=== PATIENT | female | born 1970 | race Hispanic/Latino ===

== ENCOUNTER 2018-01-15 19:05 | Emergency (ER) | payer SELFPAY ==
--- NOTE | 2018-01-15 19:55 | CT ---
CT HEAD NONCONTRAST: 01/15/18 HISTORY: Syncope. COMPARISON: 01/17/12. FINDINGS: There is no evidence of acute intracranial hemorrhage or infarct. Ventricles appear normal in size, s hape and position. There is no mass effect or shift of midline structures. The visualized paranasal s inuses remain well aerated. IMPRESSION: No acute intracranial abnormalities are demonstrated. POS: [facility]
[2018-01-15 20:09] LABS: #Eosinphils 0.2 thou/uL (0.0-0.7); #Lymphocytes 1.2 thou/uL (1.20-3.40); #Monocytes 0.5 thou/uL (0.11-0.59); #Neutrophils 7.6 thou/uL (1.40-6.50); %Basophils 0.1 % (0.0-1.0); %Eosinophils 2.1 % (0.0-10.0); %Lymphocytes 12.4 % (21.0-51.0); %Monocytes 4.9 % (0.0-10.0); %Neutrophils 80.5 % (42.0-75.0); Hemoglobin 7.6 g/dL (12.0-16.0); Mean Corpuscular HGB CONC 28.6 g/dL (32.0-36.0); Mean Corpuscular Hemoglobin 17.6 pg (27.0-31.0); Mean Corpuscular Volume 61.4 fL (78.0-98.0); Mean Platelet Volume 5.5 fL (7.4-10.4); Platelet Count 394 thou/uL (130-400); RBC Distribution Width 19.1 % (11.5-14.5); Red Blood Cell (RBC) Count 4.31 mill/uL (4.20-5.40); White Blood Cell (WBC) Count 9.5 thou/uL (4.8-10.8)
[2018-01-15 20:27] LABS: ALT (SGPT) 19 U/L (8-55); AST (SGOT) 16 U/L (5-34); Albumin 4.2 g/dL (3.5-5.0); Alkaline Phosphatase 72 U/L (40-150); Anion Gap 12 mmol/L (10-20); BUN (Urea Nitrogen) 14 mg/dL (7.0-18.7); Bilirubin, Total 0.8 mg/dL (0.2-1.2); Calc. Creatinine Clearance 0 mL/min (70-130); Calcium 9.6 mg/dL (7.8-10.44); Carbon Dioxide 26 mmol/L (22-29); Chloride 104 mmol/L (98-107); Estimated GFR-MDRD 75; Globulin 3.8 g/dL (2.4-3.5); Glucose 150 mg/dL (70-105); Potassium 4.1 mmol/L (3.5-5.1); Sodium 138 mmol/L (136-145)
[2018-01-15 20:28] LABS: Anisocytosis MODERATE=16-30 cells (100X) (0-5/hpf); Elliptocytes SLIGHT = 2-5 cells (100X) (0-1/hpf); Hypochromia MODERATE=16-30 cells (100X) (0-5/hpf); MDiff Complete? YES; Microcytosis MODERATE=15-30 cells (100X) (0-5/hpf); Ovalocytes SLIGHT = 2-5 cells (100X) (0-1/hpf); PLT Morphology Comment Appears Adequate; Poikilocytosis SLIGHT = 6-15 cells (100X) (0-5/hpf); Polychromasia SLIGHT = 2-3 cells (100X) (0-2/hpf); Reflex for Review?? YES; Stomatocytes SLIGHT = 2-5 cells (100X) (0-1/hpf); Target Cells SLIGHT = 2-5 cells (100X) (0-1/hpf); Tear Drops SLIGHT = 2-5 cells (100X) (0-1/hpf)
[2018-01-15 21:23] LABS: Bilirubin Negative (Negative); Blood, Urine Negative (Negative); Clarity CLEAR (Clear); Glucose, Urine (Dipstick) Negative (Negative); Leukocyte Trace (Negative); Nitrite Negative (Negative); Protein, Urine (Dipstick) 30 mg/dL (Neg-Trace); Specific Gravity, Urine 1.024 (1.002-1.036); pH, Urine 6.5 (5.0-9.0)
[2018-01-15 21:26] LABS: Bacteria/HPF None Seen HPF (None Seen); Pathc Cast-AUWi Flag 0.43 (0-2.49)
[2018-01-15 21:34] LABS: Hyaline Casts/LPF 0-3 HYALINE CAST LPF (0-3 Hyaline); RBC/HPF 0-3 HPF (0-3)
== END 2018-01-15 22:45 | disposition home or self-care (01) ==
LOC: ERS 19:05
DX: D50.9 Iron deficiency anemia, unspecified (principal); R55 Syncope and collapse; F17.200 Nicotine dependence, unspecified, uncomplicated; Z86.73 Personal history of transient ischemic attack (TIA), and cerebral infarction without residual deficits
CPT/HCPCS: 36415; 70450; 80053; 81003; 81015; 85025; 85060; 93005

== ENCOUNTER 2018-12-16 08:05 | Observation (INO) | payer SELFPAY ==
--- NOTE | 2018-12-16 08:27 | CT ---
Head CT without contrast 12/16/2018: COMPARISON: 01/15/2018 HISTORY: Facial droop and weakness, stroke alert TECHNIQUE: Axial CT imaging at 5 mm intervals from vertex through skull base without contrast FINDINGS: The visualized paranasal sinuses and mastoid air cells are well aerated. No displaced corine rial fracture. No intracranial hemorrhage, midline shift, mass effect, or ventricular enlargement. IMPRESSION: No acute findings. Results called to Dr. Woo 8:23 AM 12/16/2018
[2018-12-16] MEDS ORDERED: Ondansetron PF 4 MG/2 ML Vial ONE ×2 (08:41→08:52)
--- NOTE | 2018-12-16 09:04 | CT ---
CT angiogram head CT angiogram neck: 12/16/2018 COMPARISON: None HISTORY: Facial droop, dizziness, vomiting TECHNIQUE: Axial CT imaging obtained at 1.25 mm intervals from vertex through lung apices with IV con trast using CT angiogram protocol. Coronal and sagittal 3-D reformatted imaging obtained. FINDINGS: The visualized lung apices are unremarkable. The retroantral fat, parapharyngeal fat, parotid glands, submandibular glands, tonsillar pillars, epi glottis, preepiglottic fat, hyoid bone, thyroid cartilage, and cricoid cartilage grossly unremarkable. Focal nonspecific area of hypodensity noted within the ventral aspect of the tonsillar pillar on the right measuring 7-8 mm. This likely represents trapped secretions. Direct visualization suggested. The origin of the innominate artery, left common carotid artery, and left subclavian artery unremarka ble. Origin of right common carotid artery and right subclavian artery unremarkable. Origin of bilateral vertebral arteries unremarkable. Bilateral vertebral arteries are patent. Proximal aspect of bilateral common carotid arteries demonstrate tortuosity. There is a medialized re tropharyngeal course of the common carotid artery distally bilaterally. On the basis of NASCET criteria, there is no hemodynamically significant stenosis involving the inter nal carotid artery on either side. The basilar artery and its branches appear patent. No saccular aneurysm, high-grade stenosis, or vasc ular occlusion is evident involving the posterior circulation. The A1 segment is patent bilaterally. Distal TOMASA branches appear unremarkable. The ICA bifurcation appears unremarkable bilaterally. The M1 segment appears patent bilaterally. No discrete intra-arterial thrombus can be visualized on this examination. There appears to the a re lative paucity of distal MCA branches on the left when compared to the right superiorly/posteriorly. This could signify nonvisualized occlusion or hemodynamically significant marli nosis involving a left M2 branch. Clinical correlation is essential. This could potentially be on the basis of patient head positioning being slightly tilted to the left however. CT PERFUSION: CT perfusion maps including axial blood volume, axial blood flow, and axial mean transi t time provided. The perfusion maps appear grossly unremarkable, with no discrete area of abnormal perfusion evident. IMPRESSION: Questionable slight paucity of arterial branches within left MCA territory. However, perf usion imaging appears unremarkable and no discrete intra-arterial thrombus is seen. 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 Results discussed with Dr. Woo at 8:58 AM 12/16/2018.
[2018-12-16 09:20] LABS: #Eosinphils 0.3 thou/uL (0.0-0.7); #Lymphocytes 2.1 thou/uL (1.20-3.40); #Monocytes 0.5 thou/uL (0.11-0.59); #Neutrophils 5.9 thou/uL (1.40-6.50); %Basophils 0.3 % (0.0-1.0); %Eosinophils 3.9 % (0.0-10.0); %Lymphocytes 23.7 % (21.0-51.0); %Monocytes 5.7 % (0.0-10.0); %Neutrophils 66.5 % (42.0-75.0); Hemoglobin 13.8 g/dL (12.0-16.0); Mean Corpuscular HGB CONC 33.4 g/dL (32.0-36.0); Mean Corpuscular Hemoglobin 28.9 pg (27.0-31.0); Mean Corpuscular Volume 86.6 fL (78.0-98.0); Mean Platelet Volume 8.8 fL (7.4-10.4); Platelet Count 317 thou/uL (130-400); RBC Distribution Width 17.4 % (11.5-14.5); Red Blood Cell (RBC) Count 4.79 mill/uL (4.20-5.40); White Blood Cell (WBC) Count 8.9 thou/uL (4.8-10.8)
[2018-12-16 09:30] LABS: ALT (SGPT) 26 U/L (8-55); AST (SGOT) 17 U/L (5-34); Albumin 4.2 g/dL (3.5-5.0); Alkaline Phosphatase 103 U/L (40-150); Anion Gap 10 mmol/L (10-20); BUN (Urea Nitrogen) 11 mg/dL (7.0-18.7); Bilirubin, Total 0.6 mg/dL (0.2-1.2); Calc. Creatinine Clearance 0 mL/min (70-130); Calcium 9.4 mg/dL (7.8-10.44); Carbon Dioxide 27 mmol/L (22-29); Chloride 104 mmol/L (98-107); Estimated GFR-MDRD 76; Globulin 3.2 g/dL (2.4-3.5); Glucose 110 mg/dL (70-105); Potassium 3.6 mmol/L (3.5-5.1); Protein, Total 7.4 g/dL (6.0-8.3); Sodium 137 mmol/L (136-145)
[2018-12-16] MEDS ORDERED: Meclizine HCl 25 MG TAB ONE (09:49)
[2018-12-16] MEDS ORDERED: Aspirin Chewable 81 MG TAB ONE (09:49)
[2018-12-16] MEDS ORDERED: Ondansetron ODT 4 MG TAB SL PRN (14:40)
[2018-12-16] MEDS ORDERED: Ondansetron PF 4 MG/2 ML Vial IVP PRN ×2 (14:40→18:57)
[2018-12-16] MEDS ORDERED: Acetaminophen 325 MG TAB PO PRN (14:40)
[2018-12-16 15:15] VITALS: BMI 38.4
[2018-12-16] MEDS ORDERED: Acetaminophen 500 MG TAB PO PRN (18:57)
[2018-12-16] MEDS ORDERED: hydrALAZINE 20 MG/ML VIAL SLOW IVP PRN (18:57)
[2018-12-16] MEDS ORDERED: Ondansetron ODT 4 MG TAB PO PRN (18:57)
[2018-12-16] MEDS ORDERED: Aspirin 81 mg Enteric Coated Tablet PO SCH (19:00)
[2018-12-16] MEDS: Sodium Chloride 0.9% 1,000 ML IV SCH (19:06)
[2018-12-16] MEDS ORDERED: Meclizine HCl 25 MG TAB PO SCH (19:15)
--- NOTE | 2018-12-16 19:31 | ULT ---
EXAM: Carotid ultrasound HISTORY: Vertigo COMPARISON: None TECHNIQUE: Multiplanar grayscale and color Doppler images were obtained in a carotid ultrasound. Spec tral analysis of the Doppler waveforms were performed. FINDINGS: No significant plaque is visualized in either internal carotid artery. No significant plaque is seen in either common carotid artery. The Doppler waveforms are normal in the visualized vessels. Peak systolic velocity in the right internal carotid artery 99 cm/s. Peak systolic velocity in the right common carotid artery 116 cm/s. The right ICA/CCA ratio is 0.9. Peak systolic velocity in the left internal carotid artery 72 cm/s. Peak systolic velocity in the left common carotid artery 119 cm/s. The left ICA/CCA ratio is 0.6. Both vertebral arteries demonstrate antegrade flow without focal stenosis IMPRESSION: No evidence of hemodynamically significant stenosis.
[2018-12-16] MEDS: Meclizine HCl 25 MG TAB PO SCH (22:11)
[2018-12-16] MEDS: Famotidine/PF 20 mg/2ml Vial SLOW IVP SCH (22:12)
--- NOTE | 2018-12-17 00:42 | HP ---
PRIMARY CARE PROVIDER: [facility]. CHIEF COMPLAINT: Dizziness and vomiting. HISTORY OF PRESENT ILLNESS: This is a 48-year-old female, Martiniquais- speaking only, who presented to [facility] complaining of dizziness, which woke her from sleep with associated nausea and vomiting. The patient states she had multiple emesis episodes after waking up approximately 6: 30 to 7:30 a.m. in the morning of presentation. No specific family members with similar symptoms, recent travel history or exposure. The patient's last normal meal intake was approximately 11:00 a.m. on 12/15/2018. The patient had persistent symptoms requiring evaluation in the emergency room. The patient denied any associated constipation or diarrhea, dysuria, change to her medication regimen or recent exposure history. The patient with a history of prior Gillis's palsy. Apparently evaluated in the last 2-3 months prior to this evaluation at an outside medical facility. The patient was given apparently a prescription for prednisone; however, is unable to identify the medication as a steroid. The patient states she completed the prescription and currently takes no specific medications. The patient denied any hematemesis or melena. The patient denies any recent vaccinations. In the emergency room, the patient underwent general evaluation including CT imaging of the brain showing no acute process. Screening metabolic survey was essentially unremarkable. The patient received antiemetics including meclizine and Zofran in addition to 324 mg of aspirin and intravenous normal saline x1 L. PAST MEDICAL HISTORY: 1. Gillis's palsy x7 years. 2. Question of TIA. PAST SURGICAL HISTORY: 1. Status post appendectomy. 2. Status post section x2. CURRENT MEDICATIONS: Reviewed and negative. ALLERGIES: NO KNOWN DRUG ALLERGIES. FAMILY HISTORY: Positive for diabetes mellitus. SOCIAL HISTORY: The patient resides in [place], [place]. Accompanied by multiple family members in the hospital. Smokes up to 5 cigarettes daily. No alcohol use. History of prior drug use including THC and methamphetamines. REVIEW OF SYSTEMS: CONSTITUTIONAL: Negative for weight loss or gain, ability to conduct usual activities. SKIN: Negative for rash, itching. EYES: Negative for double vision, pain. ENT/MOUTH: Negative for nose bleeding, neck stiffness, pain, tenderness. CARDIOVASCULAR: Negative for palpitations, dyspnea on exertion, orthopnea. RESPIRATORY: Negative for shortness of breath, wheezing, cough, hemoptysis, fever or night sweats. GASTROINTESTINAL: Negative for poor appetite, abdominal pain, heartburn, nausea , vomiting, constipation, or diarrhea. GENITOURINARY: Negative for urgency, frequency, dysuria, nocturia. MUSCULOSKELETAL: Negative for pain, swelling. NEUROLOGIC/PSYCHIATRIC: Negative for anxiety, depression. ALLERGY/IMMUNOLOGIC: Negative for skin rash, bleeding tendency. Otherwise negative except as stated per HPI. PHYSICAL EXAMINATION: VITAL SIGNS: On admission, blood pressure 123/76, pulse 66, respiratory rate 16 , temperature 98.2 degrees Fahrenheit, O2 saturation 98% on room air. GENERAL APPEARANCE: This is a 48-year-old female, alert and oriented x3, Martiniquais-speaking only, in no acute distress. HEENT: Pupils are equal, round, reactive to light and accommodation. Extraocular muscles are intact. No scleral icterus. No conjunctival injection. No nystagmus noted. Nares patent. OP is clear. Oral mucosa dry. NECK: Supple. No cervical adenopathy. No thyromegaly. No carotid bruits. No JVD appreciated. Cervical spine with full active and passive range of motion. No meningeal signs noted. CHEST: Lungs are clear to auscultation bilaterally. CARDIOVASCULAR: S1-S2 without noted murmur, rub, or gallop. ABDOMEN: Obese, soft, nontender, and nondistended. Bowel sounds are positive in all 4 quadrants. There is no hepatosplenomegaly. No abdominal bruits, no rebound or guarding appreciated. EXTREMITIES: Warm and dry with fair turgor. No clubbing, cyanosis, or asymmetric edema appreciated. Pulses palpable distally at the dorsalis pedis, posterior tibial, and popliteal arteries bilaterally. Capillary refill less than 2 seconds. NEUROLOGIC: Right facial asymmetry consistent with prior history of Gillis's palsy. Rest of the cranial nerves 2 through 12 are grossly intact. PERTINENT LAB AND X-RAY FINDINGS: Basic metabolic profile within normal limits. Glucose 110. LFTs within normal limits. Troponin I negative x1. CBC within normal limits. CT of the brain without contrast dated 12/16/2018, showed no acute intracranial process. CT angiogram of the head and neck showed no focal stenosis or evidence of thrombus. EKG dated 12/16/2018, by my interpretation shows sinus mechanism with heart rates in the 60s. Normal R-wave progression noted in the precordial leads. Normal axis. No acute ST-T wave changes appreciated. ASSESSMENT/PLAN: 1. Vertigo. The patient will be observed on the stroke unit. Suspect benign positional vertigo with potential viral syndrome with gastroenteritis. Start intravenous normal saline 100 mL/hour. Meclizine 25 mg p.o. q.8 hours. Check magnesium, phosphorus, and TSH level. 2. Nausea and vomiting. Suspect secondary to #1 with possible contribution of viral gastroenteritis. Antiemetics including Zofran IV. Continue intravenous normal saline 100 mL/hour. Clear liquids as tolerated. 3. Hyperglycemia. Check A1c level in the a.m. 4. Gillis's palsy. Chronic after review of the medical record over 7 years. Check MRI of the brain to rule out evidence of cerebrovascular accident. Continue aspirin 81 mg daily. 5. Prophylaxis. Sequential compression devices while in bed. Pepcid 20 mg p.o. b.i.d. CODE STATUS: Full. Surrogate medical decision maker is the patient's sister. Job ID: [id number] MTDD
[2018-12-17] MEDS: Sodium Chloride 0.9% 1,000 ML IV SCH ×2 (05:40→14:54)
[2018-12-17] MEDS: Meclizine HCl 25 MG TAB PO SCH ×2 (05:41→13:24)
[2018-12-17 05:52] LABS: Hemoglobin A1c 5.5 % (4.0-6.0)
[2018-12-17 05:59] LABS: Band 6 % (5-11); Eosinophils 5 % (0-10); Hemoglobin 12.7 g/dL (12.0-16.0); Lymphocytes 30 % (21-51); MDiff Complete? YES; Mean Corpuscular HGB CONC 32.5 g/dL (32.0-36.0); Mean Corpuscular Hemoglobin 28.9 pg (27.0-31.0); Mean Platelet Volume 8.7 fL (7.4-10.4); Monocytes 4 % (0-10); Neutrophil 55 % (42-75); Platelet Count 312 thou/uL (130-400); RBC Distribution Width 17.6 % (11.5-14.5); Red Blood Cell (RBC) Count 4.38 mill/uL (4.20-5.40); White Blood Cell (WBC) Count 8.7 thou/uL (4.8-10.8)
[2018-12-17 06:06] LABS: Phosphorus 3.4 mg/dL (2.3-4.7)
[2018-12-17 06:11] LABS: Anion Gap 8 mmol/L (10-20); BUN (Urea Nitrogen) 7 mg/dL (7.0-18.7); Calc. Creatinine Clearance 141 mL/min (70-130); Calcium 8.6 mg/dL (7.8-10.44); Carbon Dioxide 26 mmol/L (22-29); Chloride 109 mmol/L (98-107); Estimated GFR-MDRD 83; Glucose 77 mg/dL (70-105); Magnesium 2.1 mg/dL (1.6-2.6); Potassium 3.6 mmol/L (3.5-5.1); Sodium 139 mmol/L (136-145)
[2018-12-17] MEDS ORDERED: Aspirin 81 mg Enteric Coated Tablet PO SCH (09:00)
[2018-12-17] MEDS: Famotidine/PF 20 mg/2ml Vial SLOW IVP SCH (09:06)
--- NOTE | 2018-12-17 11:40 | MRI ---
MRI BRAIN WITH AND WITHOUT IV CONTRAST: Date: 12/17/18 HISTORY: Vertigo. COMPARISON: 01/09/12. CORRELATION: CT and CTA brain from previous day. FINDINGS: No restricted diffusion is seen. Changes of mild chronic small vessel ischemic disease in the periven tricular white matter redemonstrated. No evidence of infarct, hemorrhage, mass, midline shift, or abn ormal extra-axial fluid collections are seen. No abnormal postcontrast enhancement is noted. The vent ricular size is normal and the basilar cisterns are patent. An empty sella is again noted. IMPRESSION: 1. No evidence of acute intracranial process or mass. 2. Mild chronic small vessel ischemic disease. 3. Empty sella turcica. POS: OFF
[2018-12-17 11:54] LABS: Amphetamine Not Detected (NotDetected); Barbiturates Screen Not Detected (NotDetected); Benzodiazepine Screen Not Detected (NotDetected); Cocaine Metabolite Screen Not Detected (NotDetected); Medtox Control Line Valid? VALID (VALID); Medtox Reader # READER 4; Methadone Not Detected (NotDetected); Methamphetamine Not Detected (NotDetected); Opiate Screen Not Detected (NotDetected); Oxycodone Screen Not Detected (NotDetected); Phencyclidine (PCP) Not Detected (NotDetected); THC/Cannabinoid Screen Not Detected (NotDetected); Tricyclic Screen Not Detected (NotDetected)
[2018-12-17 15:57] VITALS: BP 129/65; TEMP 98.4
--- NOTE | 2018-12-17 21:28 | DIS ---
DATE OF ADMISSION: 12/16/2018 DATE OF DISCHARGE: 12/17/2018 DISCHARGE DIAGNOSES: 1. Benign positional vertigo. 2. Nausea and vomiting secondary to number #1, resolved. 3. Hyperglycemia, mild. 4. Gillis's palsy, chronic. CONSULTATIONS: None. PERTINENT LABORATORY AND X-RAY FINDINGS: Basic metabolic profile within normal limits. Hemoglobin A1c 5.5. Magnesium level 2.1, phosphorus 3.4. LFTs within normal limits. TSH 0.64. CBC within normal limits. Urine drug screen dated 12/17/2018, negative. CT of the brain without contrast dated 12/16/2018, showed no acute intracranial process. CT angiogram of the head and neck dated 12/16/2018, showed no hemodynamically significant stenosis. Carotid Doppler study dated 12/16/2018, showed no hemodynamically significant stenosis. MRI of the brain dated 12/17/2018, showed no acute intracranial process. Empty sella turcica. Mild chronic small-vessel ischemic changes. HOSPITAL COURSE: The patient was observed on the stroke unit after initially presenting with dizziness and vomiting. The patient underwent extensive evaluation including neuroimaging after concern for potential TIA/CVA. The patient with longstanding history of Gillis's palsy confusing the clinical picture of potential CVA with left facial asymmetry. CT and MRI imaging of the brain showed no acute intracranial process. Metabolic screening was essentially unremarkable and the patient was treated with meclizine as well as antiemetics including Zofran and IV fluids. The patient clinically stabilized and improved with supportive management. Telemetry monitoring showed sinus mechanism without evidence of acute arrhythmia and the patient tolerated regular oral intake appropriately. I have examined the patient at the time of discharge and discussed followup instructions. The patient ready for discharge on 12/17/2018. DISCHARGE MEDICATIONS: Meclizine 25 mg p.o. t.i.d. p.r.n. vertigo. FOLLOWUP: The patient will follow up with [facility] within 7 days of discharge. CONDITION ON DISCHARGE: Stable. ACTIVITY: Ad-miguel. DIET: Heart healthy. CODE STATUS: Full. DISPOSITION: Home on 12/17/2018. Job ID: [id number]
--- NOTE | 2018-12-20 12:29 | EKG ---
Test Reason : DIZZINESS Blood Pressure : / mmHG Vent. Rate : 064 BPM Atrial Rate : 064 BPM P-R Int : 178 ms QRS Dur : 088 ms QT Int : 450 ms P-R-T Axes : 046 042 046 degrees QTc Int : 464 ms Normal sinus rhythm Normal ECG Confirmed by BHAKTI AVILA DO ([id number]), multimedia editor ALAN KEARNS ([id number]) on 12/20/2018 12:29:06 PM Referred By: Confirmed By:BHAKTI AVILA DO
== END 2018-12-17 16:03 | disposition home or self-care (01) ==
LOC: ERS 08:05 → ERHOLD 10:39 → 2SE 13:58
PROVIDERS: ADMIT Family Medicine; ATTEND Family Medicine
DX: H81.10 Benign paroxysmal vertigo, unspecified ear (principal); G51.0 Bell's palsy; R73.9 Hyperglycemia, unspecified; F17.210 Nicotine dependence, cigarettes, uncomplicated; Z86.73 Personal history of transient ischemic attack (TIA), and cerebral infarction without residual deficits
CPT/HCPCS: 0042T; 36415; 36416; 70450; 70496; 70498; 70553; 80048; 80053; 80306; 83036; 83735; 84100; 84443; 84484; 85007; 85025; 85027; 93005; 93880; 96361; 96374; 96375; 96376; G0378; J2405; J8597; Q0162; S0028